=== PATIENT | male | born 1950 | race Caucasian/White ===

== ENCOUNTER 2017-08-04 17:02 | Inpatient (IN) ==
--- NOTE | 2017-08-04 17:07 | Emergency Department Note ---
Disposition Clinical Impression: Left-sided weakness TIA (transient ischemic attack) Qualifiers: Transient cerebral ischemia type: unspecified Qualified Code(s): G45.9 - Transient cerebral ischemic attack, unspecified Disposition: Admitted As Inpatient Condition: Fair General Adult HPI - General Chief complaint: ED Neuro Symptoms/Deficit Stated complaint: Neuro Symptoms Time Seen by Provider: 08/04/17 17:06 - Related Data Home Medications Medication Instructions Recorded Confirmed Atorvastatin [Lipitor] 40 mg PO HS 08/04/17 08/05/17 FLUoxetine HCl [Prozac] 10 mg PO DAILY 08/04/17 08/05/17 Insulin ASPART [Novolog Flexpen] 15 unit SQ BIDWM 08/04/17 08/05/17 Insulin Glargine [Lantus] 30 unit SQ QAM 08/04/17 08/05/17 Pregabalin [Lyrica] 50 mg PO TID 08/04/17 08/05/17 metFORMIN [Glucophage] 1,000 mg PO BID 08/04/17 08/05/17 Previous Rx's Medication Instructions Recorded Clopidogrel [Plavix] 75 mg PO DAILY #30 tablet 08/06/17 Lisinopril [Zestril] 10 mg PO DAILY #30 tablet 08/06/17 Allergies Allergy/AdvReac Type Severity Reaction Status Date / Time adhesive tape Allergy Intermediate See Verified 08/04/17 21:13 Comments Course Vital Signs Temperature 98.1 F 08/04/17 17:04 Pulse Rate 70 08/04/17 17:04 Respiratory Rate 18 08/04/17 17:04 Blood Pressure 219/94 08/04/17 17:04 O2 Sat by Pulse Oximetry 98 08/04/17 17:04 Temperature 98.5 F 08/06/17 11:30 Pulse Rate 64 08/06/17 11:30 Respiratory Rate 16 08/06/17 11:30 Blood Pressure 165/73 08/06/17 11:30 O2 Sat by Pulse Oximetry 95 08/06/17 11:30 Oxygen Delivery Oxygen Delivery Room Air Medical Decision Making - Lab Data Result diagrams: 08/05/17 01:08 08/05/17 01:08 Lab Results 08/04/17 08/04/17 08/04/17 Range/Units 17:34 17:34 17:34 WBC 10.4 (4.3-11.1) K/mcL RBC 5.50 (4.19-5.50) M/mcL Hgb 14.7 (12.9-16.9) g/dL Hct 45.7 (37.5-50.1) % MCV 83.1 (83.0-100.0) fL MCH 26.7 L (28.0-33.3) pg MCHC 32.2 (31.6-35.5) g/dL RDW 14.7 H (11.5-14.5) % Plt Count 242 (140-400) K/mcL MPV 9.7 (9.4-12.4) fL Immature Gran % 0.7 (0-4) % Seg Neutrophils % 70.2 % Lymphocytes % 19.2 % Monocytes % 6.5 % Eosinophils % 2.7 % Basophils % 0.7 % Neutrophils # 7.3 (1.6-8.9) K/mcL Lymphocytes # 2.0 (0.6-4.6) K/mcL Monocytes # 0.7 (0.0-1.3) K/mcL Eosinophils # 0.3 (0.0-0.6) K/mcL Basophils # 0.1 (0.0-0.2) K/mcL Immature Plt Fraction 4.3 (1.1-6.1) % PT 11.6 (9.4-12.1) Seconds INR 1.1 APTT 34.4 (26.0-36.0) Seconds Sodium 139 (136-145) mEq/L Potassium 4.0 (3.5-5.1) mEq/L Chloride 104 (98-107) mEq/L Carbon Dioxide 28 (23-29) mEq/L BUN 21 (8-23) mg/dL Creatinine 1.05 (0.70-1.30) mg/dL Est GFR ( Amer) > 60 (> 60) Est GFR (Non-Af Amer) > 60 (> 60) BUN/Creatinine Ratio 20 (6-26) Glucose 177 H (70-105) mg/dL POC Glucose (58-89) Calculated Osmolality 295 (280-300) Calcium 9.4 (8.6-10.3) mg/dL Troponin I (< 0.04) ng/mL Urine Color (Yellow) Urine Clarity (Clear) Urine pH (5.0-8.0) pH Units Ur Specific Brooks (1.010-1.025) Urine Protein (Neg-Trace) mg/dL Urine Glucose (UA) (Normal) mg/dL Urine Ketones (Negative) mg/dL Urine Blood (Negative) Urine Nitrite (Negative) Urine Bilirubin (Negative) Urine Urobilinogen (Normal) mg/dL Ur Leukocyte Esterase (Negative) Urine Microscopic RBC (0-3) per hpf Urine Microscopic WBC (0-3) per hpf Ur Squamous Epith Cells (None-Few) per lpf Urine Bacteria (None-Few) per hpf Hyaline Casts (None-Few) per lpf Ur Culture Indicated? (NO) 08/04/17 08/04/17 08/04/17 Range/Units 17:34 17:47 18:16 WBC (4.3-11.1) K/mcL RBC (4.19-5.50) M/mcL Hgb (12.9-16.9) g/dL Hct (37.5-50.1) % MCV (83.0-100.0) fL MCH (28.0-33.3) pg MCHC (31.6-35.5) g/dL RDW (11.5-14.5) % Plt Count (140-400) K/mcL MPV (9.4-12.4) fL Immature Gran % (0-4) % Seg Neutrophils % % Lymphocytes % % Monocytes % % Eosinophils % % Basophils % % Neutrophils # (1.6-8.9) K/mcL Lymphocytes # (0.6-4.6) K/mcL Monocytes # (0.0-1.3) K/mcL Eosinophils # (0.0-0.6) K/mcL Basophils # (0.0-0.2) K/mcL Immature Plt Fraction (1.1-6.1) % PT (9.4-12.1) Seconds INR APTT (26.0-36.0) Seconds Sodium (136-145) mEq/L Potassium (3.5-5.1) mEq/L Chloride (98-107) mEq/L Carbon Dioxide (23-29) mEq/L BUN (8-23) mg/dL Creatinine (0.70-1.30) mg/dL Est GFR ( Amer) (> 60) Est GFR (Non-Af Amer) (> 60) BUN/Creatinine Ratio (6-26) Glucose (70-105) mg/dL POC Glucose 146 H (58-89) Calculated Osmolality (280-300) Calcium (8.6-10.3) mg/dL Troponin I < 0.03 (< 0.04) ng/mL Urine Color Yellow (Yellow) Urine Clarity Clear (Clear) Urine pH 6.0 (5.0-8.0) pH Units Ur Specific Brooks 1.029 H (1.010-1.025) Urine Protein 100 H (Neg-Trace) mg/dL Urine Glucose (UA) 250 H (Normal) mg/dL Urine Ketones Negative (Negative) mg/dL Urine Blood Negative (Negative) Urine Nitrite Negative (Negative) Urine Bilirubin Negative (Negative) Urine Urobilinogen Normal (Normal) mg/dL Ur Leukocyte Esterase Negative (Negative) Urine Microscopic RBC 5-15 H (0-3) per hpf Urine Microscopic WBC 0-3 (0-3) per hpf Ur Squamous Epith Cells Few (None-Few) per lpf Urine Bacteria None Seen (None-Few) per hpf Hyaline Casts None Seen (None-Few) per lpf Ur Culture Indicated? NO (NO) Attestation Statement - Attestation Attestation: I examined this patient and my medical decision-making was reviewed with the Resident Physician. I agree with the documented findings, disposition and treatment plan as described except to the extent set forth below. [id number] time provided Patient arrives as a transfer from the [facility] with concerns for subacute left-sided weakness. Symptoms started yesterday. He does take xarelto. Appears in no acute distress upon arrival. Patient seen in conjunction with the resident physician Dr. Smith 18:52: Care to be endorsed to Dr. Lora at [address] head. he will determine final disposition
[2017-08-04 17:42] LABS: Basophils # 0.1 K/mcL (0.0-0.2); Basophils % 0.7 %; Eosinophils # 0.3 K/mcL (0.0-0.6); Eosinophils % 2.7 %; Hematocrit 45.7 % (37.5-50.1); Hemoglobin 14.7 g/dL (12.9-16.9); Immature Granulocytes % 0.7 % (0-4); Immature Platelets 4.3 % (1.1-6.1); Lymphocytes % 19.2 %; Mean Corpuscular HGB Conc 32.2 g/dL (31.6-35.5); Mean Corpuscular Hemoglobin 26.7 pg (28.0-33.3); Mean Corpuscular Volume 83.1 fL (83.0-100.0); Mean Platelet Volume 9.7 fL (9.4-12.4); Monocytes # 0.7 K/mcL (0.0-1.3); Monocytes % 6.5 %; Neutrophils # 7.3 K/mcL (1.6-8.9); Platelet Count 242 K/mcL (140-400); Red Cell Distribution Width 14.7 % (11.5-14.5); Segmented Neutrophils % 70.2 %
--- NOTE | 2017-08-04 17:49 | Emergency Department Note ---
Disposition Clinical Impression: Left-sided weakness TIA (transient ischemic attack) Qualifiers: Transient cerebral ischemia type: unspecified Qualified Code(s): G45.9 - Transient cerebral ischemic attack, unspecified Disposition: Still a Patient Condition: Fair [facility]Primary Care Provider[facility] - Forms: ED Satisfaction Letter Time of Disposition: 19:00 Neuro HPI - General Chief Complaint: ED Neuro Symptoms/Deficit Stated Complaint: Neuro Symptoms Time Seen by Provider: 08/04/17 17:06 Source: patient Limitations: no limitations Nursing Notes Reviewed: Yes Vital Signs Reviewed: Yes - History of Present Illness HPI Narrative: 67-year-old male transferred to us from the [facility] for concerns for left-sided weakness. Patient states that he noticed symptoms 30 hours ago. History of DVT , type 2 diabetes, Charcot joint, diabetic foot ulcer, nephrotic syndrome, prostate cancer, patient states that his symptoms do not noted 30 hours ago or just general weakness on the left side, he has noticed any slurred feet speech or a shoulder. He has no fever chills or recent illness. Patient denies any chest pain or abdominal pain. Onset of Symptoms Date: 08/02/17 Onset of Symptoms Time: 09:00 Symptom Onset Unknown: Yes Timing confirmed by: family member Location: left arm, left leg History of same: Yes Severity: mild Symptoms Improving: Yes Improves with: none Worsens with: none On Anticoagulants: No Associated symptoms: Reports: weakness. Denies: confusion, chest pain, cough, diaphoresis, headaches, loss of appetite, nausea/vomiting Treatments Prior to Arrival: none - Related Data Allergies/Adverse Reactions: Allergies Allergy/AdvReac Type Severity Reaction Status Date / Time No Known Allergies Allergy Verified 08/04/17 18:21 All systems ED: reviewed and negative except as stated. Review of Systems: As Per HPI Constitutional: Denies: fever, chills Eyes: Denies: eye pain ENT ED: Denies: ear pain Cardiovascular: Denies: chest pain Respiratory: Denies: cough Gastrointestinal: Denies: abdominal pain, nausea Genitourinary: Denies: urgency, dysuria Musculoskeletal: Denies: back pain Integumentary: Denies: rash Neurological: Reports: as per HPI, weakness. Denies: headache, paresthesias, confusion, abnormal gait Psychiatric: Denies: anxiety Endocrine: Denies: fatigue Hematological/Lymphatic: Denies: easy bleeding Past Medical History - Past Medical History Attestation: Yes The following information was validated with the patient. Source: patient Medical history: Reports: diabetes, hyperlipidemia, hypertension Psychiatric history: Reports: depression - Social History Smoking Status: Never smoker Smokeless Tobacco Status: No Alcohol use: Reports: none Drug use: Reports: none Physical Exam Constitutional: alert and oriented, in NAD, vital signs reviewed and wnl HEENT: NCAT, sclera anicteric, PERRLA bilaterally, EOMI Neck: normal inspection, neck is supple, trachea midline Resp: normal chest inspection, CTA bilaterally, no resp distress CV: RRR, no m/g/r GI: normal inspection, Soft, NTND, BS present Back: normal inspection, no tenderness to palpation Neuro: A&O3, gait normal, CN II-XII grossly intact bilaterally, DTRs +2/4 bilateral UE and LE, 5/5 MS bilateral UE and LE, no sensory deficits bilaterally UE and LE, finger to nose intact MSK: Charcot deformity bilateral, with 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 His good livestock farm workers strength, he has charcot deformity of his feet bilaterally and previous amputations he is a high-risk patient as he is a brittle diabetic, with peripheral vascular disease and neuropathy, plan is for acute ischemic workup with head CT basic lab work, but not a TPA candidate given he is outside the window. - Reevaluation(s) Reevaluation #1: Plan to admit to hospitalist for TIA. CT negative labs normal, Patient stable ASA given, likely TIA. Dr. Mendoza to disposition patient, hospitals paged at [phone] but does not return page care signed out for admission. Time: 19:01 Vital Signs Temperature 98.1 F 08/04/17 17:04 Pulse Rate 70 08/04/17 17:04 Respiratory Rate 18 08/04/17 17:04 Blood Pressure 219/94 08/04/17 17:04 O2 Sat by Pulse Oximetry 98 08/04/17 17:04 Temperature 98.1 F 08/04/17 17:04 Pulse Rate 70 08/04/17 18:15 Respiratory Rate 18 08/04/17 18:15 Blood Pressure 195/81 08/04/17 18:15 O2 Sat by Pulse Oximetry 97 08/04/17 18:15 Oxygen Delivery Oxygen Delivery Room Air Neuro Symptoms/Deficit - Differential Diagnosis Likely: cerebrovascular accident, transient cerebral ischemia - Medical Records Medical records reviewed: Yes I reviewed the patient's medical records. - Lab Data Lab results reviewed: Yes I reviewed the patient's lab results. Result diagrams: 08/04/17 17:34 08/04/17 17:34 Lab Results 08/04/17 08/04/17 08/04/17 Range/Units 17:34 17:34 17:34 WBC 10.4 (4.3-11.1) K/mcL RBC 5.50 (4.19-5.50) M/mcL Hgb 14.7 (12.9-16.9) g/dL Hct 45.7 (37.5-50.1) % MCV 83.1 (83.0-100.0) fL MCH 26.7 L (28.0-33.3) pg MCHC 32.2 (31.6-35.5) g/dL RDW 14.7 H (11.5-14.5) % Plt Count 242 (140-400) K/mcL MPV 9.7 (9.4-12.4) fL Immature Gran % 0.7 (0-4) % Seg Neutrophils % 70.2 % Lymphocytes % 19.2 % Monocytes % 6.5 % Eosinophils % 2.7 % Basophils % 0.7 % Neutrophils # 7.3 (1.6-8.9) K/mcL Lymphocytes # 2.0 (0.6-4.6) K/mcL Monocytes # 0.7 (0.0-1.3) K/mcL Eosinophils # 0.3 (0.0-0.6) K/mcL Basophils # 0.1 (0.0-0.2) K/mcL Immature Plt Fraction 4.3 (1.1-6.1) % PT 11.6 (9.4-12.1) Seconds INR 1.1 APTT 34.4 (26.0-36.0) Seconds Sodium 139 (136-145) mEq/L Potassium 4.0 (3.5-5.1) mEq/L Chloride 104 (98-107) mEq/L Carbon Dioxide 28 (23-29) mEq/L BUN 21 (8-23) mg/dL Creatinine 1.05 (0.70-1.30) mg/dL Est GFR ( Amer) > 60 (> 60) Est GFR (Non-Af Amer) > 60 (> 60) BUN/Creatinine Ratio 20 (6-26) Glucose 177 H (70-105) mg/dL POC Glucose (58-89) Calculated Osmolality 295 (280-300) Calcium 9.4 (8.6-10.3) mg/dL Troponin I (< 0.04) ng/mL Urine Color (Yellow) Urine Clarity (Clear) Urine pH (5.0-8.0) pH Units Ur Specific Pollock (1.010-1.025) Urine Protein (Neg-Trace) mg/dL Urine Glucose (UA) (Normal) mg/dL Urine Ketones (Negative) mg/dL Urine Blood (Negative) Urine Nitrite (Negative) Urine Bilirubin (Negative) Urine Urobilinogen (Normal) mg/dL Ur Leukocyte Esterase (Negative) Urine Microscopic RBC (0-3) per hpf Urine Microscopic WBC (0-3) per hpf Ur Squamous Epith Cells (None-Few) per lpf Urine Bacteria (None-Few) per hpf Hyaline Casts (None-Few) per lpf Ur Culture Indicated? (NO) 08/04/17 08/04/17 08/04/17 Range/Units 17:34 17:47 18:16 WBC (4.3-11.1) K/mcL RBC (4.19-5.50) M/mcL Hgb (12.9-16.9) g/dL Hct (37.5-50.1) % MCV (83.0-100.0) fL MCH (28.0-33.3) pg MCHC (31.6-35.5) g/dL RDW (11.5-14.5) % Plt Count (140-400) K/mcL MPV (9.4-12.4) fL Immature Gran % (0-4) % Seg Neutrophils % % Lymphocytes % % Monocytes % % Eosinophils % % Basophils % % Neutrophils # (1.6-8.9) K/mcL Lymphocytes # (0.6-4.6) K/mcL Monocytes # (0.0-1.3) K/mcL Eosinophils # (0.0-0.6) K/mcL Basophils # (0.0-0.2) K/mcL Immature Plt Fraction (1.1-6.1) % PT (9.4-12.1) Seconds INR APTT (26.0-36.0) Seconds Sodium (136-145) mEq/L Potassium (3.5-5.1) mEq/L Chloride (98-107) mEq/L Carbon Dioxide (23-29) mEq/L BUN (8-23) mg/dL Creatinine (0.70-1.30) mg/dL Est GFR ( Amer) (> 60) Est GFR (Non-Af Amer) (> 60) BUN/Creatinine Ratio (6-26) Glucose (70-105) mg/dL POC Glucose 146 H (58-89) Calculated Osmolality (280-300) Calcium (8.6-10.3) mg/dL Troponin I < 0.03 (< 0.04) ng/mL Urine Color Yellow (Yellow) Urine Clarity Clear (Clear) Urine pH 6.0 (5.0-8.0) pH Units Ur Specific Pollock 1.029 H (1.010-1.025) Urine Protein 100 H (Neg-Trace) mg/dL Urine Glucose (UA) 250 H (Normal) mg/dL Urine Ketones Negative (Negative) mg/dL Urine Blood Negative (Negative) Urine Nitrite Negative (Negative) Urine Bilirubin Negative (Negative) Urine Urobilinogen Normal (Normal) mg/dL Ur Leukocyte Esterase Negative (Negative) Urine Microscopic RBC 5-15 H (0-3) per hpf Urine Microscopic WBC 0-3 (0-3) per hpf Ur Squamous Epith Cells Few (None-Few) per lpf Urine Bacteria None Seen (None-Few) per hpf Hyaline Casts None Seen (None-Few) per lpf Ur Culture Indicated? NO (NO) - Radiology Data Radiology results reviewed: Yes I reviewed the patient's radiology results. Chest X-Ray 02/03/18 17:16 IMPRESSION: No acute process. D/ / Kash Ashby MD / Kash Ashby MD Interpreting Provider: Kash Ashby MD - EKG Data EKG attestation: Yes I reviewed and interpreted this EKG. EKG shows normal: sinus rhythm Rate: normal ([address] 140 QRS 110 QTC 412 Q wave in lead 3 no acute ischemic changes adenine of lateral leads with no previous EKG) When compared to previous EKG there are: previous EKG unavailable NIH Stroke Scale - Level of Consciousness LOC: Alert - LOC Questions LOC Questions: Answers both correctly - LOC Commands LOC Commands: Performs both correctly - Best Gaze Best Gaze: Normal - Visual Visual: No visual loss - Facial Palsy Facial Palsy: Normal - Motor Arms Motor Arm-Left: No drift for 10 seconds Motor Arm-Right: No drift for 10 seconds - Motor Legs Motor Leg-Left: No drift for 5 seconds Motor Leg-Right: No drift for 5 seconds - Limb Ataxia Limb Ataxia: Absent of affected limb too weak to perform exam - Sensory Sensory: Normal - Best Language Best Language: No aphasia - Dysarthria Dysarthria: Normal - Extinction and Inattention Extinction and Inattention: Normal - NIHSS Total Score NIHSS Total Score: 0 TPA Checklist - Source Information Source: Patient - Eligibilty for IV tPA 1. LKW equal to or less than 4.5 hours be before treatment: No 2. Clinical diagnosis of ischemic stroke causing deficit: No 3. Age 18 years or older: Yes - LKW: 3-4.5 hrs Add. Warnings/Precautions Patient/family understanding: The patient/family members have been counseled and understood the risk, benefit , and alternatives of treatment. S.B.A.R. - S.B.A.R. Transition of Care: CT head admit Situation: Demographics, MOA Background: Presenting Complaint, Relevant PMH, Meds, & Allergies Assessment: Vital Signs, Course and respsone to treatment, Exam Concerns, Patient/Family Expectation, Pertinant Lab Results, Outstanding Labs Recommendation: Barrier(s) to disposition, Recommendation based on pending studies, treatments, or consults S.B.A.R. Report Given to: Reji Marino Repor Time: 19:07
[2017-08-04 17:57] LABS: Bilirubin,Urine Negative (Negative); Blood,Urine Negative (Negative); Clarity,Urine Clear (Clear); Color,Urine Yellow (Yellow); Glucose,Urine (UA) 250 mg/dL (Normal); Ketones,Urine Negative (Negative); Leukocyte Esterase,Urine Negative (Negative); Nitrite,Urine Negative (Negative); Protein,Urine 100 mg/dL (Neg-Trace); Specific Gravity,Urine 1.029 (1.010-1.025); Urobilinogen,Urine Normal (Normal)
[2017-08-04 18:00] LABS: Bacteria,Urine None Seen per hpf (None-Few); Hyaline Casts,Urine None Seen per lpf (None-Few); Squamous Epithelial Cell,Urine Few per lpf (None-Few); WBC,Urine 0-3 per hpf (0-3)
[2017-08-04 18:22] LABS: INR 1.1; Prothrombin Time 11.6 Seconds (9.4-12.1)
[2017-08-04 18:25] LABS: Activated Partial Thrombo Time 34.4 Seconds (26.0-36.0)
[2017-08-04 18:29] LABS: BUN/Creatinine Ratio 20 (6-26); Blood Urea Nitrogen 21 mg/dL (8-23); Carbon Dioxide 28 mEq/L (23-29); Chloride 104 mEq/L (98-107); Sodium 139 mEq/L (136-145); eGFR For African Americans > 60 (> 60)
[2017-08-04 18:30] LABS: Calcium 9.4 mg/dL (8.6-10.3); Glucose 177 mg/dL (70-105); Osmolality,Calculated 295 (280-300); eGFR For Non-African Americans > 60 (> 60)
[2017-08-04] MEDS ORDERED: Aspirin 81 MG TAB.CHEW PO ONE (19:00)
--- NOTE | 2017-08-04 19:33 | Emergency Department Note ---
Disposition Clinical Impression: Left-sided weakness TIA (transient ischemic attack) Qualifiers: Transient cerebral ischemia type: unspecified Qualified Code(s): G45.9 - Transient cerebral ischemic attack, unspecified Disposition: Admitted As Inpatient Condition: Good Neuro HPI - General Chief Complaint: ED Neuro Symptoms/Deficit Stated Complaint: Neuro Symptoms Time Seen by Provider: 08/04/17 17:06 Source: patient Limitations: no limitations - History of Present Illness Location: left arm, left leg History of same: Yes Severity: mild Improves with: none Worsens with: none On Anticoagulants: No Treatments Prior to Arrival: none - Related Data Allergies/Adverse Reactions: Allergies Allergy/AdvReac Type Severity Reaction Status Date / Time No Known Allergies Allergy Verified 08/04/17 18:21 Constitutional: Denies: fever, chills Eyes: Denies: eye pain ENT ED: Denies: ear pain Cardiovascular: Denies: chest pain Respiratory: Denies: cough Gastrointestinal: Denies: abdominal pain, nausea Genitourinary: Denies: urgency, dysuria Musculoskeletal: Denies: back pain Integumentary: Denies: rash Neurological: Reports: as per HPI, weakness. Denies: headache, paresthesias, confusion, abnormal gait Psychiatric: Denies: anxiety Endocrine: Denies: fatigue Hematological/Lymphatic: Denies: easy bleeding Past Medical History - Past Medical History Medical history: Reports: diabetes, hyperlipidemia, hypertension Psychiatric history: Reports: depression - Social History Smoking Status: Never smoker Smokeless Tobacco Status: No Alcohol use: Reports: none Drug use: Reports: none Physical Exam - General Limitations: no limitations General appearance: alert, in no apparent distress Course Course Narrative: Case taken over at signout from Dr. Smith. Awaiting hospitalist call back for admission. The patient has left-sided deficits that had onset greater than 30 hours prior to arrival at [facility]. Patient describes deficits his left arm and leg weakness. No facial droop or achalasia or dysphagia. On exam the patient is able to raise his leg off the bed however not as aggressively as the right side. Leg does stay off the bed for greater than 10 seconds. Patient has full function of the left arm however it is weak compared to the right. Patient does not know if it has been getting better but states it is definitely not gotten any worse. Concern for cerebrovascular event. Patient with a negative head CT. Patient's blood pressure initially elevated but has been down trending. I discussed the case with the hospitalist, Dr. Oh, the patient has been accepted for admission. Blood pressure will continue to be monitored. No intervention at this time. Vital Signs Temperature 98.1 F 08/04/17 17:04 Pulse Rate 70 08/04/17 17:04 Respiratory Rate 18 08/04/17 17:04 Blood Pressure 219/94 08/04/17 17:04 O2 Sat by Pulse Oximetry 98 08/04/17 17:04 Temperature 98.1 F 08/04/17 17:04 Pulse Rate 70 08/04/17 18:15 Respiratory Rate 18 08/04/17 18:15 Blood Pressure 195/81 08/04/17 18:15 O2 Sat by Pulse Oximetry 97 08/04/17 18:15 Oxygen Delivery Oxygen Delivery Room Air Neuro Symptoms/Deficit - Lab Data Result diagrams: 08/04/17 17:34 08/04/17 17:34 Lab Results 08/04/17 08/04/17 08/04/17 Range/Units 17:34 17:34 17:34 WBC 10.4 (4.3-11.1) K/mcL RBC 5.50 (4.19-5.50) M/mcL Hgb 14.7 (12.9-16.9) g/dL Hct 45.7 (37.5-50.1) % MCV 83.1 (83.0-100.0) fL MCH 26.7 L (28.0-33.3) pg MCHC 32.2 (31.6-35.5) g/dL RDW 14.7 H (11.5-14.5) % Plt Count 242 (140-400) K/mcL MPV 9.7 (9.4-12.4) fL Immature Gran % 0.7 (0-4) % Seg Neutrophils % 70.2 % Lymphocytes % 19.2 % Monocytes % 6.5 % Eosinophils % 2.7 % Basophils % 0.7 % Neutrophils # 7.3 (1.6-8.9) K/mcL Lymphocytes # 2.0 (0.6-4.6) K/mcL Monocytes # 0.7 (0.0-1.3) K/mcL Eosinophils # 0.3 (0.0-0.6) K/mcL Basophils # 0.1 (0.0-0.2) K/mcL Immature Plt Fraction 4.3 (1.1-6.1) % PT 11.6 (9.4-12.1) Seconds INR 1.1 APTT 34.4 (26.0-36.0) Seconds Sodium 139 (136-145) mEq/L Potassium 4.0 (3.5-5.1) mEq/L Chloride 104 (98-107) mEq/L Carbon Dioxide 28 (23-29) mEq/L BUN 21 (8-23) mg/dL Creatinine 1.05 (0.70-1.30) mg/dL Est GFR ( Amer) > 60 (> 60) Est GFR (Non-Af Amer) > 60 (> 60) BUN/Creatinine Ratio 20 (6-26) Glucose 177 H (70-105) mg/dL POC Glucose (58-89) Calculated Osmolality 295 (280-300) Calcium 9.4 (8.6-10.3) mg/dL Troponin I (< 0.04) ng/mL Urine Color (Yellow) Urine Clarity (Clear) Urine pH (5.0-8.0) pH Units Ur Specific [place] (1.010-1.025) Urine Protein (Neg-Trace) mg/dL Urine Glucose (UA) (Normal) mg/dL Urine Ketones (Negative) mg/dL Urine Blood (Negative) Urine Nitrite (Negative) Urine Bilirubin (Negative) Urine Urobilinogen (Normal) mg/dL Ur Leukocyte Esterase (Negative) Urine Microscopic RBC (0-3) per hpf Urine Microscopic WBC (0-3) per hpf Ur Squamous Epith Cells (None-Few) per lpf Urine Bacteria (None-Few) per hpf Hyaline Casts (None-Few) per lpf Ur Culture Indicated? (NO) 08/04/17 08/04/17 08/04/17 Range/Units 17:34 17:47 18:16 WBC (4.3-11.1) K/mcL RBC (4.19-5.50) M/mcL Hgb (12.9-16.9) g/dL Hct (37.5-50.1) % MCV (83.0-100.0) fL MCH (28.0-33.3) pg MCHC (31.6-35.5) g/dL RDW (11.5-14.5) % Plt Count (140-400) K/mcL MPV (9.4-12.4) fL Immature Gran % (0-4) % Seg Neutrophils % % Lymphocytes % % Monocytes % % Eosinophils % % Basophils % % Neutrophils # (1.6-8.9) K/mcL Lymphocytes # (0.6-4.6) K/mcL Monocytes # (0.0-1.3) K/mcL Eosinophils # (0.0-0.6) K/mcL Basophils # (0.0-0.2) K/mcL Immature Plt Fraction (1.1-6.1) % PT (9.4-12.1) Seconds INR APTT (26.0-36.0) Seconds Sodium (136-145) mEq/L Potassium (3.5-5.1) mEq/L Chloride (98-107) mEq/L Carbon Dioxide (23-29) mEq/L BUN (8-23) mg/dL Creatinine (0.70-1.30) mg/dL Est GFR ( Amer) (> 60) Est GFR (Non-Af Amer) (> 60) BUN/Creatinine Ratio (6-26) Glucose (70-105) mg/dL POC Glucose 146 H (58-89) Calculated Osmolality (280-300) Calcium (8.6-10.3) mg/dL Troponin I < 0.03 (< 0.04) ng/mL Urine Color Yellow (Yellow) Urine Clarity Clear (Clear) Urine pH 6.0 (5.0-8.0) pH Units Ur Specific [place]eger 1.029 H (1.010-1.025) Urine Protein 100 H (Neg-Trace) mg/dL Urine Glucose (UA) 250 H (Normal) mg/dL Urine Ketones Negative (Negative) mg/dL Urine Blood Negative (Negative) Urine Nitrite Negative (Negative) Urine Bilirubin Negative (Negative) Urine Urobilinogen Normal (Normal) mg/dL Ur Leukocyte Esterase Negative (Negative) Urine Microscopic RBC 5-15 H (0-3) per hpf Urine Microscopic WBC 0-3 (0-3) per hpf Ur Squamous Epith Cells Few (None-Few) per lpf Urine Bacteria None Seen (None-Few) per hpf Hyaline Casts None Seen (None-Few) per lpf Ur Culture Indicated? NO (NO) Attestation Statement - Attestation Attestation: I examined this patient and my medical decision-making was reviewed with the Resident Physician. I agree with the documented findings, disposition and treatment plan as described except to the extent set forth below. This patient was signed out at shift change from Dr. Smith and Dr. Brunner. Please refer to their notes for complete details of history and physical examination. At shift change we are just awaiting a return call from the admitting hospitalist to the patient to the hospital. The hospitalist, Dr. Oh, was consulted accepted patient for admission to the hospital.
--- NOTE | 2017-08-04 21:00 | Internal Med History&Physical ---
Date of Encounter: 08/04/17 Time of Encounter: 20:00 Assessment and Plan (1) Left-sided weakness Current visit: Yes Status: Acute -Patient reports a one-day history of left-sided weakness. -No neuro deficits noted on exam and CT of the head negative for any acute findings. -Will order MRI of brain and MRA of neck/brain in addition to echocardiogram -Will also monitor on telemetry -Will consult neurology and physical therapy for evaluation and any further recommendations (2) Elevated blood pressure reading Current visit: Yes Status: Acute -Pressures were elevated in the ER but have not improved. -Due to potential of CVA and workup not complete, will not lower blood pressure at this time. (3) Diabetes Current visit: Yes Status: Acute -Continue home medications Qualifiers: Diabetes mellitus type: type 2 Qualified Code(s): E11.9 - Type 2 diabetes mellitus without complications (4) CAD (coronary artery disease) of bypass graft Current visit: Yes Status: Acute -Stable; continue home medications Qualifiers: [place] vs. transplanted heart: [place] heart Qualified Code(s): I25.810 - Atherosclerosis of coronary artery bypass graft(s) without angina pectoris (5) DVT prophylaxis Current visit: Yes Status: Acute -Subcutaneous heparin Internal Medicine - H&P: HPI Chief complaint: Left sided weakness Admitted From: Hospital to Hospital Transfer Plans for Post Hospital Care: Home History of present illness: Patient is a 67-year-old male with past medical history significant for insulin- dependent diabetes, hyperlipidemia, coronary arterial disease (CABG 3 2008) and history of prostate cancer who presents to the ER from the [facility] on 08/04/17 due to left sided weakness. Patient reports waking up the day prior to admission with left sided weakness in his upper and lower extremities. Patient also reports of being somnolent that day without any improvement in his upper/lower extremity weakness. who is at bedside denies that the patient had any problems with slurred speech and was always coherent. Patient reported of no improvement in symptoms on the day of admission and decided to go to the [facility] for evaluation. Upon arrival at the [facility] there was concern for CVA so the patient was transferred to [facility] ER for further workup and evaluation. In the ER, labs were unremarkable but patient was found to have elevated blood pressures with systolic ranging from 195-219 and diastolic ranging from 81-94; he admits to remote history of hypertension but no longer takes any medications. CT of the head revealed no acute intracranial abnormalities. Patient will be admitted to the medical surgical floor for CVA/TIA rule out. Past Med Surg Social Fam HX - Past Medical History Medical history: diabetes, hyperlipidemia, hypertension Psychiatric history: depression - Social History Smoking Status: Never smoker Smokeless Tobacco Status: No Alcohol use: none Drug use: none Internal Medicine - H&P: Meds 3 Allergy/AdvReac Type Severity Reaction Status Date / Time No Known Allergies Allergy Verified 08/04/17 18:21 All Systems PM: A 10-system review of systems was performed and is negative for pertinent findings except as documented above in the HPI. - Constitutional Vitals: Temp Pulse Resp BP Pulse Ox 98.1 F 70 16 166/76 97 08/04/17 17:04 08/04/17 18:15 08/04/17 20:10 08/04/17 20:10 08/04/17 18:15 General appearance: Present: A&O X 3, no acute distress - Head Head exam: Present: normocephalic - Eye Eye exam: Present: EOMI - ENT ENT exam: Present: mucous membranes moist - Respiratory Respiratory exam: Present: CTAB. Absent: accessory muscle use, rales, rhonchi, wheezes - Cardiovascular Cardiovascular exam: Present: RRR, +S1, +S2. Absent: diastolic murmur, gallop, rubs, systolic murmur - GI/Abdominal GI/Abdominal exam: Present: normal bowel sounds, soft, no peritoneal signs. Absent: distended, tenderness - Extremities Exam Extremities exam: Absent: pedal edema - Neurological Exam Neurological exam: Present: CN II-XII intact, oriented X3, no focal deficits, strengths equal and symetr throughout. Absent: facial droop, speech deficit - Psychiatric Psychiatric exam: Present: normal mood - Skin Skin exam: Present: normal color Internal Med - H&P Results - Labs CBC & Chem 7: 08/04/17 17:34 08/04/17 17:34
[2017-08-04] MEDS ORDERED: Naloxone 0.4 MG/ML INJ IVP PRN (21:09)
[2017-08-04] MEDS: *HR* Heparin 5,000 UNIT/ML VIAL SQ SCH (23:21)
[2017-08-05 01:32] LABS: Basophils # 0.1 K/mcL (0.0-0.2); Basophils % 0.8 %; Eosinophils # 0.3 K/mcL (0.0-0.6); Eosinophils % 2.9 %; Hematocrit 42.2 % (37.5-50.1); Hemoglobin 13.7 g/dL (12.9-16.9); Immature Granulocytes % 0.4 % (0-4); Lymphocytes # 2.2 K/mcL (0.6-4.6); Lymphocytes % 24.4 %; Mean Corpuscular HGB Conc 32.5 g/dL (31.6-35.5); Mean Corpuscular Hemoglobin 26.7 pg (28.0-33.3); Mean Corpuscular Volume 82.1 fL (83.0-100.0); Mean Platelet Volume 10.4 fL (9.4-12.4); Monocytes # 0.7 K/mcL (0.0-1.3); Monocytes % 7.2 %; Neutrophils # 5.8 K/mcL (1.6-8.9); Platelet Count 225 K/mcL (140-400); Red Blood Count 5.14 M/mcL (4.19-5.50); Red Cell Distribution Width 14.6 % (11.5-14.5); Segmented Neutrophils % 64.3 %
[2017-08-05] MEDS ORDERED: *HR* Dextrose 50 % in Water (Syg) 50 ML SYRINGE IVP PRN (01:38)
[2017-08-05] MEDS ORDERED: D5% in Water 1,000 ML IVC PRN (01:38)
[2017-08-05] MEDS ORDERED: Dextrose Gel 15 GM/37.5 ML TUBE PO PRN ×2 (01:38)
[2017-08-05 01:55] LABS: BUN/Creatinine Ratio 21 (6-26); Blood Urea Nitrogen 22 mg/dL (8-23); Calcium 9.1 mg/dL (8.6-10.3); Carbon Dioxide 28 mEq/L (23-29); Chloride 105 mEq/L (98-107); Chol/HDL Ratio 5.1 (0-4.9); Cholesterol 188 mg/dL (< 200); Glucose 200 mg/dL (70-105); HDL Cholesterol 37 mg/dL (40-59); LDL Cholesterol,Calculated 85 mg/dL (0-99); Osmolality,Calculated 295 (280-300); Potassium 3.9 mEq/L (3.5-5.1); Sodium 138 mEq/L (136-145); Triglycerides 331 mg/dL (< 150); eGFR For African Americans > 60 (> 60); eGFR For Non-African Americans > 60 (> 60)
[2017-08-05] MEDS: *HR* Heparin 5,000 UNIT/ML VIAL SQ SCH ×3 (06:37→20:50)
[2017-08-05] MEDS: Insulin LISPRO 300 UNITS/3 ML VIAL SQ SCH ×3 (08:12→17:15)
[2017-08-05] MEDS ORDERED: Aspirin 81 MG TAB.CHEW PO SCH (09:00)
[2017-08-05] MEDS ORDERED: Pregabalin 25 MG CAPSULE PO SCH (09:00)
--- NOTE | 2017-08-05 09:14 | Internal Med Progress Note ---
Date of Encounter: 08/05/17 Time of Encounter: 09:11 - Assessment and plan (1) Acute CVA (cerebrovascular accident) Current Visit: Yes Status: Acute Assessment and plan: We will change aspirin to Plavix. Continue with statin. Neurology has been consulted on admission. Rest of stroke workup is pending. Patient has elevated blood pressure consistently. He tells me he has no history of hypertension. Continue with neuro checks. Echo pending. (2) Elevated blood pressure reading Current Visit: Yes Status: Acute Assessment and plan: While off permissive hypertension for now. By tomorrow if his blood pressure remains elevated we may have to start on antihypertensives (3) CAD (coronary artery disease) of bypass graft Current Visit: Yes Status: Acute Assessment and plan: Continue Plavix, statin. Not sure why the patient is not on a beta josefina previously but his heart rate is on the lower side here. If his blood pressure remains elevated and his heart rate tolerates we can possibly start him on a beta josefina. Qualifiers: [place] vs. transplanted heart: [place] heart Qualified Code(s): I25.810 - Atherosclerosis of coronary artery bypass graft(s) without angina pectoris (4) Diabetes Current Visit: Yes Status: Acute Assessment and plan: Continue with insulin sliding scale. Continue with Accu-Cheks. Qualifiers: Diabetes mellitus type: type 2 Qualified Code(s): E11.9 - Type 2 diabetes mellitus without complications (5) DVT prophylaxis Current Visit: Yes Status: Acute Assessment and plan: Heparin subcutaneous - Subjective Interval history: Patient was seen and examined. He was admitted yesterday with left-sided weakness upper and lower. He also reports numbness in the left upper extremity fourth and fifth fingers. He says symptoms started about 2 days ago. His contact the new small recent infarct in the sj right of midline. He has been hemodynamic stable other than elevated blood pressure. He tells me usually his blood pressure is controlled. He is status post right TMA and had amputations of his toes on the left lower extremity as well. He has chronic swelling of his lower extremities with the right being significantly larger than the left. He tells me this has been the case ever since his amputations. - Constitutional Vitals: Temp Pulse Resp BP Pulse Ox 99.1 F 54 20 193/76 93 08/05/17 07:21 08/05/17 07:21 08/05/17 07:21 08/05/17 07:21 08/05/17 07:21 General appearance: Present: A&O X 3, no acute distress Exam: GEN: NAD CVS: RRR. S1, S2, No m/r/g RESP: CTAB ABD: Soft, NT, ND, +BS EXT: 1+ edema bilaterally. 2+ DP, No rashes. Right TMA noted. Left toes and medications noted. NEURO: Strength is about 4 out of 5 in the right upper extremity with 5 out of 5 in the left upper extremity. Lower extremities are intact strength espinosa. Internal Medicine: Result - Labs CBC & Chem 7: 08/05/17 01:08 08/05/17 01:08 Labs: Short CBC 08/05/17 Range/Units 01:08 WBC 9.0 (4.3-11.1) K/mcL Hgb 13.7 (12.9-16.9) g/dL Hct 42.2 (37.5-50.1) % Plt Count 225 (140-400) K/mcL Neutrophils # 5.8 (1.6-8.9) K/mcL BMP 08/05/17 01:08 Sodium 138 Potassium 3.9 Chloride 105 Carbon Dioxide 28 BUN 22 Creatinine 1.04 Glucose 200 H Calcium 9.1 - ABG Interpretation ABG results: PT/INR, D-dimer PT 11.6 Seconds (9.4-12.1) 08/04/17 17:34 - Impressions Impressions Brain MRI 08/04/17 21:13 IMPRESSION: Small recent infarct in the sj right of midline. No acute hemorrhage Disproportionate lateral ventricular enlargement. This is similar compared to recent CT scan D/ / Hector aHrvey / Hector Harvey Interpreting Provider: Hector Harvey Head MRA 08/04/17 21:13 IMPRESSION: Focal narrowing in the left posterior cerebral artery lateral to the midbrain. Otherwise no focal significant narrowing noted. D/ / Hector Harvey / Hector Harvey Interpreting Provider: Hector Harvey Neck MRA 08/04/17 21:13 IMPRESSION: Mild multifocal narrowing in the distal vertebral arteries involving the proximal intracranial segments. There is also a small focal short segment mild narrowing in the right mid vertebral artery There is mild, less than 40%, narrowing of a short segment of the left proximal internal carotid artery. No acute abnormality otherwise D/ / Hector Harvey / Hector Harvey Interpreting Provider: Hector Harvey Consult Discharge Plan - Plan [facility]errals: [facility] [Primary Care Provider] -
[2017-08-05] MEDS: Pregabalin 50 MG CAPSULE PO SCH ×2 (09:15→15:10)
[2017-08-05] MEDS: FLUoxetine HCl 10 MG CAPSULE PO SCH (09:15)
[2017-08-05] MEDS: Acetaminophen 325 MG TABLET PO PRN ×2 (09:18→20:50)
[2017-08-05] MEDS ORDERED: Perflutren Lipid Microsphere 1.3 ML in 0.9 % Sodium Chloride 8.7 ML IVP ONE (10:22)
[2017-08-05] MEDS ORDERED: Perflutren Lipid Microsphere 2 ML VIAL ONE (10:30)
--- NOTE | 2017-08-05 14:03 | Neurology - Consult Note ---
Date of Encounter: 08/05/17 Time of Encounter: 13:59 Assessment and Plan (1) Acute CVA (cerebrovascular accident) Current Visit: Yes Status: Acute Symptoms consistent with MRI of brain findings of right pontine lacunar infarct , likely secondary to small vessel etiology. Stroke work up completed barring carotid artery duplex study but MRA of neck showed no critical ICA stenosis. Agree with Aspirin 81mg and Plavix 75mg daily. Continue statin therapy. Risk factor modification including management of HTN, glucose control, CPAP for PADMINI and weight loss. PT/OT. History of Present Illness Chief complaint: left sided weakness HPI: Mr. Pink is a 67 year old male 67 year old man with PMH significant for HTN, DM, obesity, PADMINI on CPAP, hyperlipidemia who developed acute onset of left sided weakness. Symptoms occurred Sunday 2am after he woke up he felt the left arm weakness. He went back to sleep and in the morning he realized that his left leg is weak too. He went to ER and CT of head showed no acute intracranial abnormality. not a tPA candidate since by the time he arrived ER he was out of tPA window. MRI of brain showed positive right median pontine infarct. Patient has no speech difficulty, no double vision, no swallowing difficulty. He feels that his left sided weakness has been improving. He takes aspirin at home. Added plavix here. he takes statin for hyerlipidemia Past Med Surg Social Fam HX - Past Medical History Medical history: diabetes, hyperlipidemia, hypertension Psychiatric history: depression - Social History Smoking Status: Never smoker Smokeless Tobacco Status: No Alcohol use: none Drug use: none - Family History Mother Adopted: [place]: mary pink Family Member Ethnicity: Non- Living Status: Age at : 79 Cause of : sudden heart failure Hx Family Cardiac Disorders: Yes Hx Family Cancer: Yes (lung cancer) Father Adopted: [place]: mohinder pink Family Member Ethnicity: Non- Twin of Family Member: Yes, Fraternal Living Status: Age at : 57 Cause of : kidney failure Hx Family Cardiac Disorders: Yes (stroke) Hx Family Respiratory Disorders: No Hx Family Cancer: No Hx Family GI Disorders: No Hx Family Genitourinary Disorders: No Hx Family Endocrine Disorder: No Hx Family Musculoskeletal Disorders: No Hx Family Neuromuscular Disorders: No Hx Family Neurologic Disorders: No Hx Family HEENT Disorders: No Hx Family Autoimmune Disorders: No Medications and Allergies Aspirin 81 mg PO DAILY 08/04/17 [History] Atorvastatin 80 mg PO DAILY 08/04/17 [History] FLUoxetine HCl 10 mg PO DAILY 08/04/17 [History] Insulin Glargine [Lantus] 30 unit DAILY 08/04/17 [History] NovoLOG 15 unit SQ BID 08/04/17 [History] Pregabalin 50 mg PO TID 08/04/17 [History] metFORMIN 1,000 mg PO BID 08/04/17 [History] 3 Allergy/AdvReac Type Severity Reaction Status Date / Time adhesive tape Allergy Intermediate See Verified 08/04/17 21:13 Comments All Systems: A 10-system review of systems was performed and is negative for pertinent findings except as documented above in the HPI. Physical Examination - Vital Signs Vital Signs: Initial Vital Signs Temp Pulse Resp BP Pulse Ox 98.1 F 70 18 219/94 98 08/04/17 17:04 08/04/17 17:04 08/04/17 17:04 08/04/17 17:04 08/04/17 17:04 - Constitutional General appearance: comfortable - Neurologic Detailed motor examination: full strength in all major muscle groups Motor examination - right side: 5/5: deltoids, biceps, triceps, wrist flexion, wrist extension, division merchandise manager, hip flexors, tibialis Anterior, quadriceps, toe extension (EHL), plantarflexion Motor examination - left side: 4/5: deltoids, biceps, triceps, wrist flexion, wrist extension, hip flexors, division merchandise manager, quadriceps, tibialis Anterior, toe extension (EHL), plantarflexion Reflexes: Biceps: 1+, Triceps: 1+, Brachioradialis: 1+, Patella: 1+, Achilles: 1 + Mental Status Examination: awake, alert, oriented to person, oriented to place, oriented to time, follows commands appropriately, answers questions appropriately, no agnosia, no aphasia, no aproxia Cranial nerve examination: PERRL, EOMI, visual philippe intact, corneal reflexes brisk symmetrically, sensory to face intact, mastication intact, no facial asymmetry is present, no dysarthria, hearing is intact symmetrically, soft palate elevates bilaterally upon phonation, gag reflex intact, flexes SCM and trapezius muscles symmetrically with full power, tongue protrudes midline, no atrophy or facial fasiculations present Cerebellar examination: no dysmetria, performs finger to nose and heel to lewis symmetrically without ataxia, no gait ataxia, no truncal ataxia, no difficulty with rapid alternating movements Results - Laboratory Findings CBC and BMP: 08/05/17 01:08 08/05/17 01:08 Abnormal lab findings: Abnormal lab results MCV 82.1 fL (83.0-100.0) L 08/05/17 01:08 MCH 26.7 pg (28.0-33.3) L 08/05/17 01:08 RDW 14.6 % (11.5-14.5) H 08/05/17 01:08 Glucose 200 mg/dL (70-105) H 08/05/17 01:08 POC Glucose 196 (58-89) H 08/05/17 02:05 Triglycerides 331 mg/dL (< 150) H 08/05/17 01:08 VLDL Cholesterol, Calc 66 mg/dL (< 31) H 08/05/17 01:08 HDL Cholesterol 37 mg/dL (40-59) L 08/05/17 01:08 Cholesterol/HDL Ratio 5.1 (0-4.9) H 08/05/17 01:08 Ur Specific [place] 1.029 (1.010-1.025) H 08/04/17 17:47 Urine Protein 100 mg/dL (Neg-Trace) H 08/04/17 17:47 Urine Glucose (UA) 250 mg/dL (Normal) H 08/04/17 17:47 Urine Microscopic RBC 5-15 per hpf (0-3) H 08/04/17 17:47 - Diagnostic Findings Additional findings: EV/EV echocardiogram w enhance Impressions: Blood pressure at time of study is 190/94 mmHg. LVEF 60%. Mild concentric left ventricular hypertrophy. Grade II pseudonormal LV diastolic dysfunction. Definity echo contrast was used. Normal right ventricular structure and function. No pulmonary hypertension. MR/MR angio neck wo/w con IMPRESSION: Mild multifocal narrowing in the distal vertebral arteries involving the proximal intracranial segments. There is also a small focal short segment mild narrowing in the right mid vertebral artery There is mild, less than 40%, narrowing of a short segment of the left proximal internal carotid artery. No acute abnormality otherwise MR/MR head/brain wo con IMPRESSION: Small recent infarct in the sj right of midline. No acute hemorrhage Disproportionate lateral ventricular enlargement. This is similar compared to recent CT scan Consult Discharge Plan - Plan [facility]errals: [facility] [Primary Care Provider] -
[2017-08-05] MEDS ORDERED: Insulin LISPRO 300 UNITS/3 ML VIAL SQ SCH (21:00)
[2017-08-05] MEDS ORDERED: Pregabalin 50 MG CAPSULE PO SCH (21:00)
[2017-08-06] MEDS: *HR* Heparin 5,000 UNIT/ML VIAL SQ SCH (06:44)
[2017-08-06] MEDS: Insulin LISPRO 300 UNITS/3 ML VIAL SQ SCH (08:36)
[2017-08-06] MEDS: FLUoxetine HCl 10 MG CAPSULE PO SCH (08:37)
--- NOTE | 2017-08-06 10:08 | Discharge Summary ---
Date of Encounter: 08/06/17 Time of Encounter: 10:06 - Discharge Diagnosis (1) Acute CVA (cerebrovascular accident) Priority: Primary Status: Acute (2) Elevated blood pressure reading Priority: Primary Status: Acute (3) CAD (coronary artery disease) of bypass graft Priority: Secondary Status: Acute Qualifiers: [place] vs. 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 Qualified Code(s): E11.59 - Type 2 diabetes mellitus with other circulatory complications - Discharge Medications Prescriptions: Clopidogrel [Plavix] 75 mg PO DAILY #30 tablet Lisinopril [Zestril] 10 mg PO DAILY #30 tablet Home Medications: Atorvastatin [Lipitor] 40 mg PO HS 08/04/17 [History] FLUoxetine HCl [Prozac] 10 mg PO DAILY 08/04/17 [History] Insulin ASPART [Novolog Flexpen] 15 unit SQ BIDWM 08/04/17 [History] Insulin Glargine [Lantus] 30 unit SQ QAM 08/04/17 [History] Pregabalin [Lyrica] 50 mg PO TID 08/04/17 [History] metFORMIN [Glucophage] 1,000 mg PO BID 08/04/17 [History] Clopidogrel [Plavix] 75 mg PO DAILY #30 tablet 08/06/17 [Rx] Lisinopril [Zestril] 10 mg PO DAILY #30 tablet 08/06/17 [Rx] Allergies/Adverse Reactions: 3 Allergy/AdvReac Type Severity Reaction Status Date / Time adhesive tape Allergy Intermediate See Verified 08/04/17 21:13 Comments Procedures/tests Complete & Pending: Procedures Performed prior 72 hours Category Date Time Status MR angio head wo con [MR] Routine MRI 08/04/17 21:13 Completed MR angio neck wo/w con [MR] Routine MRI 08/04/17 21:13 Completed MR head/brain wo con [MR] Routine MRI 08/04/17 21:13 Completed EKG [ECG 12 lead ECG] [ECG] Stat Y 08/05/17 20:45 Ordered EV echocardiogram w enhance Routine Y 08/04/17 21:12 Completed Date of admission: 08/04/17 19:36 [facility] care physician[facility] Consults: 08/04/17 21:11 Consult to Neurology [CONS] Routine Consulting Provider: [facility] Reason for Consult: Left-sided weakness Call Completed: No Consult to Physical Therapy [CONS] Routine Comment: Evaluate, develop and implement POC Reason for Consult: Left-sided weakness 08/05/17 01:39 Consult to Wound Care [CONS] Routine Reason for Consult: foot wound Call Completed: No 08/06/17 07:30 OT [Consult to Occupational Therapy] [CONS] Routine Comment: Evaluate, develop and implement POC Reason for Consult: S/P infarct on MRI - Patient Status Disposition: Home, Self-Care Condition: Fair Overall status at discharge: patient is progressing back to baseline - Discharge Instructions Instructions: Lisinopril (By mouth), Clopidogrel (By mouth), Ischemic Stroke ( DC), Hypertensive Crisis (DC) Follow [facility] With: [facility] [Primary Care Provider] - 08/16/17 9:15 am - Diet and Activity Activity: as per physical therapy, increase activity as tolerated Diet: low salt diet Hospital course: Mr. Eli is a 67 year old male with past medical history significant for insulin-dependent diabetes, hyperlipidemia, coronary arterial disease (CABG 3 2008) and history of prostate cancer who presented to the ER from the [facility] on due to left sided weakness. Patient reported waking up the day prior to admission with left sided weakness in his upper and lower extremities. He decided to go to the [facility] for evaluation. Upon arrival at the [facility] there was concern for CVA so the patient was transferred to [facility] ER for further workup and evaluation. In the ER, labs were unremarkable but patient was found to have elevated blood pressures with systolic ranging from 195-219 and diastolic ranging from 81-94; he admited to remote history of hypertension but no longer takes any medications. CT of the head revealed no acute intracranial abnormalities. He was admitted to the hospitalist service for stroke workup. Underwent MRI of brain which showed an acute small recent infarct in the sj right of midline. The rest of his workup including CTA of head and neck and echocardiogram were unremarkable. We had neurology see the patient with us. We switched his aspirin to Plavix and continued him on statin. We allowed for permissive hypertension initially however his blood pressure remained elevated and we added lisinopril which he was on it says. The patient was stable for discharge on 08/06/2017. - Time Spent with Patient Total time spent providing and/or coordinating discharge services: Greater than 30 minutes - Constitutional Vitals: Temp Pulse Resp BP Pulse Ox 98.4 F 59 16 132/65 95 08/06/17 08:26 08/06/17 09:43 08/06/17 08:26 08/06/17 08:26 08/06/17 08:26 General appearance: Present: A&O X 3, no acute distress Exam: GEN: NAD CVS: RRR. S1, S2, No m/r/g RESP: CTAB ABD: Soft, NT, ND, +BS EXT: 1+ edema bilaterally. 2+ DP, No rashes. Right TMA noted. Left toes and medications noted. NEURO: Strength is about 4 out of 5 in the right upper extremity with 5 out of 5 in the left upper extremity. Lower extremities are intact strength espinosa.
--- NOTE | 2017-08-06 10:09 | Physician Discharge Referral ---
Home Health/Hosp Referral Info Transfer to: Home Health - Diagnosis (1) Acute CVA (cerebrovascular accident) Priority: Primary Status: Acute (2) Elevated blood pressure reading Priority: Primary Status: Acute (3) CAD (coronary artery disease) of bypass graft Priority: Secondary Status: Acute (4) Diabetes Priority: Secondary Status: Acute - Respiratory Orders Smoking Cessation: Smoking cessation has been advised. For more information, call the [place] Tobacco Quit Line at 2-495-ICNP-NOW. - Services Needed Following services are medically necessary services: Home Health Aide, Physical Therapy, Occupational Therapy - Transfer Medications Prescriptions: Clopidogrel [Plavix] 75 mg PO DAILY #30 tablet Lisinopril [Zestril] 10 mg PO DAILY #30 tablet Home Medications: Atorvastatin [Lipitor] 40 mg PO HS 08/04/17 [History] FLUoxetine HCl [Prozac] 10 mg PO DAILY 08/04/17 [History] Insulin ASPART [Novolog Flexpen] 15 unit SQ BIDWM 08/04/17 [History] Insulin Glargine [Lantus] 30 unit SQ QAM 08/04/17 [History] Pregabalin [Lyrica] 50 mg PO TID 08/04/17 [History] metFORMIN [Glucophage] 1,000 mg PO BID 08/04/17 [History] Clopidogrel [Plavix] 75 mg PO DAILY #30 tablet 08/06/17 [Rx] Lisinopril [Zestril] 10 mg PO DAILY #30 tablet 08/06/17 [Rx] Allergies/Adverse Reactions: 3 Allergy/AdvReac Type Severity Reaction Status Date / Time adhesive tape Allergy Intermediate See Verified 08/04/17 21:13 Comments Certification: Further, I certify that my clinical findings support that this patient is homebound (i.e. absences from home require considerable and taxing effort and are for medical reasons or voodoo services or infrequently or short duration when for other reasons) because: Homebound Reason: Patient requires assistance of a person or device to safely leave home Attestation: My signature below is to certify that this patient is under my care and that I, or nurse practitioner, or a physician's assistant store leader working with me, has a face-to -face encounter with this patient.
[2017-08-06 11:31] VITALS: BP 165/73
--- NOTE | 2017-08-07 19:49 | Electrocardiograph Report ---
[place] [id number] Test Date: 2017-08-04 Pat Name: Benjie Eli Department: 102 Room: 07 Gender: M Pulmonology Technician: Tmstacy : [id number] Requested By: Norberto Smith Order Number: [id number] Reading MD: Alejandro Chavez MD Measurements Intervals [place] Rate: 62 P: 30 RI: 140 QRS: 22 QRSD: 110 T: 86 QT: 406 QTc: 412 Interpretive Statements SINUS RHYTHM LEFT ATRIAL ENLARGEMENT INCOMPLETE RIGHT BUNDLE BRANCH BLOCK Electronically Signed On 08-07-2017 19:48:16 EST by Alejandro Chavez MD
== END 2017-08-06 13:15 | disposition home or self-care (01) | DRG 65 ==
LOC: EMEROO 17:02 → 2NNU 19:36
PROVIDERS: ADMIT Pediatrics; ATTEND Internal Medicine